=== PATIENT | male | born 2000 | race Caucasian/White ===

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

== ENCOUNTER 2019-08-28 08:00 | Emergency (ER) | payer OTHER ==
[2019-08-28] MEDS ORDERED: diPHENhydraMINE IV* 50 MG/ML 1 ml VIAL (BENADRYL) IV ONE (08:04)
[2019-08-28] MEDS ORDERED: NS 0.9% 1000 ML** 1,000 ML IV ONE (08:04)
[2019-08-28] MEDS ORDERED: Metoclopramide IV* 5 MG/ML 2 ML VIAL IV ONE (08:04)
--- NOTE | 2019-08-28 08:09 | ED ---
Neurological HPI - HPI Summary HPI Summary: This pt is a 19 Y/O M [facility] of a headache that is rated a 2/10 in severity. He states that the headache occurred when he woke this morning and was associated with L sided weakness and tingling, dizziness, issues with ambulation, and issues with speaking. He states that he was last known normal at 1999 last night when he went to sleep. He states that he has a history of hemiplegic headaches and reports around 20 episodes with one that resorted in a trip to the hospital. He states that this currently episode began with a sinus headache. He denies any fevers, chills, SOB, CP, sore throat, and myalgia. He states that he has no aggravating or alleviating factors. He has a PMHx of autism, bipolar disorder, and chronic migraines. - History of Current Complaint Chief Complaint: EDHeadache Stated Complaint: L SIDE WEAKNESS PER EMS Time Seen by Provider: 08/28/19 08:04 Last Known Well Date: 2000 Hx Obtained From: Patient Onset/Duration: Sudden Onset Timing: Constant Pain Intensity: 2 Pain Scale Used: 0-10 Numeric Character: Dizzy, Numbness/Tingling, Motor Weakness, Impaired Speech Aggravating: Nothing Alleviating: Nothing Associated Signs and Symptoms: Positive: Headache, Weakness - L sided distal extremities, Dizziness, Impaired Speech, Numbness - L sided distal extremities. Negative: Fever, Chest Pain, Shortness of Breath TPA Considered: No - arrived 12 hours to [facility] after onset Similar Episode/Dx as: states Hx of hemiplegic headaches - Additional Pertinent History Primary Care Physician: [id number] - Allergy/Home Medications Allergies/Adverse Reactions: Allergies Allergy/AdvReac Type Severity Reaction Status Date / Time musk melons Allergy Mild Itching Uncoded 08/28/19 08:05 Home Medications: Home Medications risperiDONE TAB* [Risperdal*] 1 mg PO BEDTIME 02/19/16 [History Confirmed ] risperiDONE TAB* [Risperdal*] 0.5 mg PO QAM 08/22/16 [History Confirmed 10/14/18 ] Divalproex DR TAB(*) [Depakote DR TAB(*)] 250 mg PO BID #60 tab. 04/02/18 [Rx Confirmed 10/14/18] Ibuprofen TAB* [Motrin TAB* 800 MG] 800 mg PO Q8H #20 tab 08/26/18 [Rx Confirmed 10/14/18] Enalapril TAB* [Vasotec TAB*] 1 tab PO DAILY 10/14/18 [History Confirmed ] Ofloxacin 0.3% (Ear Drop)* [Floxin 0.3% OTIC.MARISSA (Ear Drop)] 5 drop LEFT EAR BID #1 btl 10/14/18 [Rx] PMH/Surg Hx/FS Hx/Imm Hx Previously Healthy: Yes Endocrine/Hematology History: Denies: Hx Diabetes Cardiovascular History: Reports: Hx Hypertension - on meds, Other Cardiovascular Problems/Disorders - heart murmur Denies: Hx Pacemaker/ICD Respiratory History: Denies: Hx Asthma History: Denies: Hx Dialysis, Hx Renal Disease Musculoskeletal History: Reports: Other Musculoskeletal History - hypermobility syndrome Denies: Hx Rheumatoid Arthritis, Hx Osteoporosis Sensory History: Reports: Hx Contacts or Glasses Denies: Hx Hearing Aid Opthamlomology History: Reports: Hx Contacts or Glasses Psychiatric History: Reports: Hx Anxiety, Hx Autism, Hx Depression, Hx Inpatient Treatment, Hx Community Mental Health Tx, Hx Bipolar Disorder, Hx Suicide Attempt, Hx of Violent Episodes Against Others Denies: Hx Eating Disorder, Hx Panic Disorder - Cancer History Hx Chemotherapy: No Hx Radiation Therapy: No - Surgical History Surgical History: Yes Surgery Procedure, Year, and Place: wisdom teeth - Immunization History Date of Tetanus Vaccine: Up to date Date of Influenza Vaccine: None Immunizations Up to Date: Yes Infectious Disease History: Denies: Hx Clostridium Difficile, Hx Hepatitis, Hx Human Immunodeficiency Virus (HIV), Hx of Known/Suspected MRSA, Hx Tuberculosis, Hx Known/Suspected VRE , Hx Known/Suspected VRSA, History Other Infectious Disease - Family History Known Family History: Positive: Other - Bipolar disorder (both parents); TIA ( mother) Negative: Cardiac Disease, Hypertension, Diabetes - Social History Lives: With Family Alcohol Use: None Hx Substance Use: No Substance Use Type: Reports: None Hx Tobacco Use: No Smoking Status (MU): Never Smoked Tobacco Have You Smoked in the Last Year: No Review of Systems Negative: Fever, Chills Negative: Chest Pain Negative: Shortness Of Breath Negative: Myalgia Neurological/Mental Status: Other - impaired speech Positive: Headache, Weakness - L sided distal extremitites, Numbness - L sided distal extremities All Other Systems Reviewed And Are Negative: Yes Physical Exam - Summary Physical Exam Summary: Constitutional: Well-developed, Well-nourished, Alert. (-) Distressed Skin: Warm, Dry HENT: Normocephalic; Atraumatic Eyes: Conjunctiva normal Neck: Musculoskeletal ROM normal neck. (-) JVD, (-) Stridor, (-) Tracheal deviation Cardio: Rhythm regular, rate normal, Heart sounds normal; Intact distal pulses. Radial pulses are 2+ and symmetric. (-) Murmur Pulmonary/Chest wall: Effort normal. (-) Respiratory distress, (-) Wheezes, (-) Rales Abd: Soft. (-) Tenderness, (-) Distension, (-) Guarding, (-) Rebound Musculoskeletal: (-) Edema Lymph: (-) Cervical adenopathy Neuro: Alert, Oriented x3, Strength normal, Cranial nerves II-XII are grossly intact. (-) Dysmetria, (-) Nystagmus, (-) Ataxia by finger to nose testing, Decreased sensation in the palms and feet on the L, moving more proximally improves sensations Psych: Mood and affect Normal NIH: 1 (see attached section for more information) Triage Information Reviewed: Yes Vital Signs On Initial Exam: Temp Pulse Resp BP SpO2 FiO2 97.8 F 70 17 132/81 98 08/28/19 08:02 08/28/19 08:02 08/28/19 08:02 08/28/19 08:02 08/28/19 08:02 Vital Signs Reviewed: Yes - Chuy Coma Scale Best Eye Response: 4 - Spontaneous Best Motor Response: 6 - Obeys Commands Best Verbal Response: 5 - Oriented Coma Scale Total: 15 Procedures - Sedation Patient Received Moderate/Deep Sedation with Procedure: No Diagnostics - Laboratory Result Diagrams: 08/28/19 08:26 08/28/19 08:26 Lab Statement: Any lab studies that have been ordered have been reviewed, and results considered in the medical decision making process. NIH Scale - NIH Scale Level of Consciousness: Alert/Keenly Responsive Ask Patient the Month and His/Her Age: Both Correct Ask Pt to Open/Close Eyes and Waste Collection Driver/Release Non-Paretic Hand: Both Correctly Best Gaze (Only Horizontal Eye Movement): Normal Visual Field Testing: No Visual Loss Facial Paresis-Pt to Smile & Close Eyes or Grimace Symmetry: Normal/Symmetrical Motor Function - Right Arm: No Drift-Holds 10 Seconds Motor Function - Left Arm: No Drift-Holds 10 Seconds Motor Function - Right Leg: No Drift-Holds 10 Seconds Motor Function - Left Leg: No Drift-Holds 10 Seconds Limb Ataxia-Must be out of Proportion to Weakness Present: Absent Sensory (Use Pinprick to Test Arms/Legs/Trunk/Face): Pinprick Less on Affected Best Language (Describe Picture, Name Items): No Aphasia Dysarthria (Read Several Words): Normal Extinction and Inattention: No Abnormality Total Score: 1 Re-Evaluation - Re-Evaluation First Eval Re-Evaluation Time: 08:52 Change: Improved Comment: States that he is feeling better. Reports being drowsy and that his lightheadedness and tinglinging is improving. Second Eval Re-Evaluation Time: 09:45 Change: Improved Comment: Pt states that his headache is almost completely gone and his strength has returned to normal. He states that he is now sleepy. Course/Dx - Course Course Of Treatment: Patient is here with his typical hemiplegic migraine. The patient was last seen normal at 8 PM yesterday so he is out of any stroke window. Upon arrival, patient had a normal neurologic exam outside of peripheral numbness in his fingers and foot. Patient had bloodwork performed which is grossly unremarkable. Patient was given a migraine cocktail with vast improvement in his symptoms. Patient is discharged with neurology follow-up - Diagnoses Provider Diagnoses: Headache, hemiplegic migraine Discharge ED - Sign-Out/Discharge Documenting (check all that apply): Patient Departure - discharge - Discharge Plan Condition: Good Disposition: HOME Patient Education Materials: Migraine Headache (ED) Referrals: Lia Hodges MD [Primary Care Provider] - 2 Days Antelmo Nielsen MD [Medical Doctor] - 2 Days Additional Instructions: PLEASE FOLLOW UP WITH YOUR PRIMARY CARE PROVIDER AND DR. NIELSEN, NEUROLOGY, IN THE NEXT 1-3 DAYS AND RETURN TO THE EMERGENCY DEPARTMENT FOR ANY NEW OR WORSENING SYMPTOMS. Take advil for the pain. If you develop any new symptoms, or have re-occurring symptoms, please return to the emergency department for further work-ups. - Billing Disposition and Condition Condition: GOOD Disposition: Home - Attestation Statements Document Initiated by Erica: Yes Documenting Scribe: Jose Flowers Provider For Whom Scribe is Documenting (Include Credential): Gibson Hernandez MD Scribe Attestation: I, Jose Flowers, scribed for Gibson Hernandez MD on 08/28/19 at 1317. Scribe Documentation Reviewed: Yes Provider Attestation: The documentation as recorded by the [email or web address] accurately reflects the service I personally performed and the decisions made by me, Gibson Hernandez MD Status of Scribe Document: Viewed
--- OUTSIDE RECORDS SUMMARY | 2019-08-28 08:36 | XMS REPORT ---
:2000 Author Organization [facility] Care Team Providers Name Role Phone JOSUE MAHAN Primary Care Physician Unavailable Allergies, Adverse Reactions, Alerts Allergy Code CodeSystem Reaction Severity Criticality Status Start Substance Date Moderate Medications Medication Medication Medication Start Stop Route Dose Status Fill Code CodeSystem Date Date Instructions risperidone 919945 RxNorm 2020- oral 1 mg 1/2 active Take 1/2 6 06-11 tablet tablet by three mouth three times a times a day day for 30 day(s) Depakote 1993692 RxNorm 2019- oral 250 mg 1 completed Take 1 tablet 07-31 tablet,d by mouth elayed twice a day release for 30 day(s) (DR/EC) twice a day divalproex 1241200 RxNorm 2019- oral 250 mg 1 active 1 tablet 8-02 03-01 tablet,d twice a day elayed for 30 day(s) release (DR/EC) twice a day Problems Problem Name Code CodeSystem Alternate Alternate Start End Status Narrative Code CodeSystem Date Date Bipolar 79237498 SNOMED-CT Active affective 4-06 disorder, unspecified Childhood [id number] SNOMED-CT Active autism 3-22 Relevant diagnostic tests/laboratory data Narrative No Information Procedures Procedure Code CodeSystem Target Date of Status Service Device Device Device Name Site Procedure Delivery Code Name UID Location Psychotherap [id number] SNOMED-CT () 2018-08-24 complete Mental y, 44 04 d Health- minutes with [facility] patient [address], [id number] [phone] Psychotherap [id number] SNOMED-CT () 2018-09-21 complete Mental y, 44 04 d Health- minutes with [facility] patient [address], [id number] [phone] Office [place] [id number] SNOMED-CT () 2018-09-30 complete Mental other 7 d Health- outpatient [facility] visit for [address], established [id number] patient, [phone] which requires at least 2 of these 3 moise components: An expanded problem focused history; An expanded problem focused examination; Medical decision making of low Psychotherap [id number] SNOMED-CT () 2018-10-27 complete Mental y, 44 04 d Health- minutes with [facility] patient [address], [id number] [phone] SNOMED-CT () 2018-11-02 complete Mental d Health- [facility], [id number] [id number] Office or [id number] SNOMED-CT () 2018-11-11 complete Mental other 7 d Health- outpatient [facility] visit for [address], established [id number] patient, [id number] which requires at least 2 of these 3 moise components: An expanded problem focused history; An expanded problem focused examination; Medical decision making of low SNOMED-CT () 2018-11-23 complete Mental d Health- [address], [id number] [phone] Psychotherap [id number] SNOMED-CT () 2018-11-17 complete Mental y, 44 04 d Health- minutes with [facility] patient [address], [id number] [phone] Psychotherap [id number] SNOMED-CT () 2018-12-14 complete Mental y, 45 04 d Health- minutes with [facility] patient [address], [id number] [phone] Office or [id number] SNOMED-CT () 2019-01-05 complete Mental other 6 d Health- outpatient [facility] visit for [address], established [id number] patient, [phone] which requires at least 2 of these 3 moise components: A problem focused history; A problem focused examination; Straightforw wilfredo medical decision making. Tomin SNOMED-CT () 2019-02-01 complete Mental d Health- [address], [id number] [phone] Psychotherap [id number] SNOMED-CT () 2019-02-09 complete Mental y, 45 04 d Health- minutes with [facility] patient [address], [id number] [phone] Psychotherap [id number] SNOMED-CT () 2019-02-15 complete Mental y, 45 04 d Health- minutes with [facility] patient [address], [id number] [phone] Office or [id number] SNOMED-CT () 2019-02-23 complete Mental other 6 d Health- outpatient [facility] visit for [address], [facility], established [id number] patient, [phone] which requires at least 2 of these 3 moise components: A problem focused history; A problem focused examination; Straightforw wilfredo medical decision making. Counselin Psychotherap [id number] SNOMED-CT () 2019-03-16 complete Mental y, 44 04 d Health- minutes with [facility] patient [address], [id number] [phone] Office or [id number] SNOMED-CT () 2019-04-20 complete Mental other 6 d Health- outpatient [facility] visit for [address], [facility], established [id number] patient, [phone] which requires at least 2 of these 3 moise components: A problem focused history; A problem focused examination; Straightforw wilfredo medical decision making. Counselin SNOMED-CT () 2019-04-27 complete Mental d Health- [facility] [address], [id number] [phone] SNOMED-CT () 2019-05-25 complete Mental d Health- [facility] [address], [id number] [phone] Psychotherap [id number] SNOMED-CT () 2019-07-08 complete Mental y, 45 04 d Health- minutes with [facility] patient [address], [id number] [phone] Office or [id number] SNOMED-CT () 2019-07-07 complete Mental other 6 d Health- outpatient [facility] visit for [address], management [place], of an [facility] established [phone] patient, [phone] which requires at least 2 of these 3 moise components: A problem focused history; A problem focused examination; Straightforw wilfredo medical decision making. Counselin Encounters/Encounter Diagnoses Encounter Encounter Diagnosis Diagnosis Name Diagnosis Date of Service Name Code Code CodeSystem Diagnosis Delivery Location Non-Billable 10316 [id number] Bipolar SNOMED-CT 2019-07-19 Behavioral affective Health disorder, Clinic , , unspecified , Vital Signs No Information Social History Element Description Description Start End Code CodeSystem AdditionalInfo Date Date SexAssignedAtBirth Male 1999-05 M AdministrativeGender 16 Hospital Discharge Instructions Reason For Referral Medical Equipment FDA Assessments
[2019-08-28 08:39] LABS: ABS Eosinophils 0.1 10^3/ul (0-0.6); ABS Lymphocytes 1.3 10^3/ul (1.0-4.8); ABS Monocytes 0.4 10^3/ul (0-0.8); ABS Neutrophils 3.8 10^3/ul (1.5-7.7); Eosinophil % 1.9 %; Hematocrit 47 % (42-52); Hemoglobin 16.4 g/dL (14.0-18.0); Lymphocyte % 23.3 %; Mean Corpuscular HGB Conc 35 g/dL (31-36); Mean Corpuscular Hemoglobin 31 pg (27-31); Mean Corpuscular Volume 90 fL (80-94); Mean Platelet Volume 8.6 fL (7.4-10.4); Nucleated Red Blood Cells % 0.1; Platelet Count 183 10^3/uL (150-450); Red Blood Count 5.23 10^6 /uL (4.18-5.48); Red Cell Distribution Width 12 % (10-15); White Blood Count 5.7 10^3/uL (3.5-10.8)
[2019-08-28 08:48] LABS: Albumin 4.4 g/dL (3.2-5.2); Albumin/Globulin Ratio 1.9 (1-3); BUN/Creatinine Ratio 15.2 (8-20); Calcium 9.5 mg/dL (8.6-10.3); EGFR African American 126.9 (>60); EGFR Non-African American 104.9 (>60); Globulin 2.3 g/dL (2-4); Potassium 4.4 mmol/L (3.5-5.0); Total Bilirubin 0.4 mg/dL (0.2-1.0); Total Protein 6.7 g/dL (6.4-8.9)
[2019-08-28] MEDS ORDERED: Ketorolac INJ* 30 MG/ML 1 ML VIAL IV ONE (08:52)
[2019-08-28 09:51] VITALS: BP 124/67
== END 2019-08-28 09:51 | disposition home or self-care (01) ==
LOC: ED 08:00
DX: G43.409 Hemiplegic migraine, not intractable, without status migrainosus (principal); R20.0 Anesthesia of skin; I10 Essential (primary) hypertension; Z79.899 Other long term (current) drug therapy; F41.9 Anxiety disorder, unspecified
CPT/HCPCS: 36415; 80053; 83735; 85025; 96374; 96375; 99282; J1200; J1885; J2765

== ENCOUNTER 2021-03-21 18:19 | Inpatient (IN) ==
[2021-03-21 19:10] LABS: ABS Eosinophils 0.1 10^3/ul (0-0.6); ABS Monocytes 0.6 10^3/ul (0-0.8); ABS Neutrophils 5.1 10^3/ul (1.5-7.7); Eosinophil % 1.5 %; Hematocrit 48 % (42-52); Hemoglobin 16.3 g/dL (14.0-18.0); Lymphocyte % 25.9 %; Mean Corpuscular HGB Conc 34 g/dL (31-36); Mean Corpuscular Hemoglobin 31 pg (27-31); Mean Corpuscular Volume 90 fL (80-94); Mean Platelet Volume 8.5 fL (7.4-10.4); Platelet Count 190 10^3/uL (150-450); Red Cell Distribution Width 12 % (10-15); White Blood Count 7.8 10^3/uL (3.5-10.8)
[2021-03-21 19:24] LABS: ALT 43 U/L (7-52); AST 23 U/L (13-39); Albumin 4.8 g/dL (3.2-5.2); Albumin/Globulin Ratio 1.8 (1-3); Alkaline Phosphatase 52 U/L (35-149); Anion Gap 9 mmol/L (2-11); Blood Urea Nitrogen 14 mg/dL (6-24); CO2 Carbon Dioxide 28 mmol/L (22-32); Calcium 9.9 mg/dL (8.6-10.3); Chloride 98 mmol/L (101-111); Globulin 2.6 g/dL (2-4); Glucose 91 mg/dL (70-100); Potassium 3.8 mmol/L (3.5-5.0); Sodium 135 mmol/L (135-145); Total Protein 7.4 g/dL (6.4-8.9)
[2021-03-21 19:53] LABS: Acetaminophen < 15 mcg/mL; Alcohol, S < 13 mg/dL (<13); Salicylate < 2.50 mg/dL (<30)
[2021-03-21 20:02] LABS: TSH Ultra Thyroid Stim Horm 3.75 mcIU/mL (0.34-5.60)
[2021-03-21 20:19] LABS: Urine Appearance Clear; Urine Bilirubin Negative (Negative); Urine Blood Negative (Negative); Urine Color Straw; Urine Glucose Negative (Negative); Urine Ketones Negative (Negative); Urine Nitrite Negative (Negative); Urine Protein Negative (Negative); Urine Specific Gravity 1.009 (1.002-1.030); Urine Urobilinogen Negative (Negative)
[2021-03-21 20:38] LABS: Urine Benzodiazepine Screen None Detected (None Detect); Urine Cannabinoids Screen None Detected (None Detect); Urine Opiates Screen None Detected (None Detect)
[2021-03-22 05:19] LABS: Rapid COVID-19 Molecular Undetected (Undetected)
[2021-03-22] MEDS ORDERED: Al Hydrox/Mg Hydrox/Simet LIQ 30 ML UDC PO PRN (07:03)
[2021-03-22] MEDS: CMCS: OMEGA-3 FATTY ACID 1000 mg(NF) PO SCH ×3 (07:38→20:26)
[2021-03-22] MEDS: Vitamin THERAPEUTIC TAB PO SCH (07:45)
[2021-03-23 08:01] LABS: HDL Cholesterol 23.8 mg/dL
[2021-03-23] MEDS: Vitamin THERAPEUTIC TAB PO SCH (08:11)
[2021-03-23] MEDS: CMCS: OMEGA-3 FATTY ACID 1000 mg(NF) PO SCH (20:11)
[2021-03-24] MEDS: Vitamin THERAPEUTIC TAB PO SCH (07:56)
[2021-03-24] MEDS: CMCS: OMEGA-3 FATTY ACID 1000 mg(NF) PO SCH (20:10)
[2021-03-25] MEDS: Vitamin THERAPEUTIC TAB PO SCH (08:23)
[2021-03-25] MEDS: CMCS: OMEGA-3 FATTY ACID 1000 mg(NF) PO SCH (20:02)
[2021-03-26] MEDS: Vitamin THERAPEUTIC TAB PO SCH (09:47)
[2021-03-26] MEDS: CMCS: OMEGA-3 FATTY ACID 1000 mg(NF) PO SCH (20:04)
[2021-03-27] MEDS: Vitamin THERAPEUTIC TAB PO SCH (08:24)
[2021-03-27 08:25] VITALS: BP 133/76
== END 2021-03-27 13:30 | disposition home or self-care (01) | DRG 753 ==
LOC: ED 18:19 → BSU 03-22 04:40
PROVIDERS: ADMIT Psychiatry & Neurology Psychiatry; ATTEND Psychiatry & Neurology Psychiatry

== ENCOUNTER 2022-01-11 18:25 | Inpatient (IN) ==
[2022-01-11 20:30] LABS: ABS Eosinophils 0.4 10^3/ul (0-0.6); ABS Lymphocytes 1.8 10^3/ul (1.0-4.8); ABS Monocytes 0.6 10^3/ul (0-0.8); ABS Neutrophils 2.2 10^3/ul (1.5-7.7); Eosinophil % 7.5 %; Hematocrit 47 % (42-52); Lymphocyte % 36.8 %; Mean Corpuscular HGB Conc 34 g/dL (31-36); Mean Corpuscular Hemoglobin 31 pg (27-31); Mean Corpuscular Volume 91 fL (80-94); Mean Platelet Volume 8.3 fL (7.4-10.4); Nucleated Red Blood Cells % 0.1; Platelet Count 180 10^3/uL (150-450); Red Blood Count 5.19 10^6 /uL (4.18-5.48); Red Cell Distribution Width 12 % (10-15); White Blood Count 4.9 10^3/uL (3.5-10.8)
[2022-01-11 21:25] LABS: ALT 40 U/L (7-52); AST 23 U/L (13-39); Acetaminophen < 15 mcg/mL; Albumin 4.8 g/dL (3.2-5.2); Albumin/Globulin Ratio 2.1 (1-3); Alcohol, S < 13 mg/dL (<13); Alkaline Phosphatase 50 U/L (35-149); Anion Gap 10 mmol/L (2-11); Blood Urea Nitrogen 17 mg/dL (6-24); CO2 Carbon Dioxide 30 mmol/L (22-32); Calcium 9.8 mg/dL (8.6-10.3); Chloride 99 mmol/L (101-111); Globulin 2.3 g/dL (2-4); Glucose 88 mg/dL (70-100); Potassium 4.8 mmol/L (3.5-5.0); Sodium 139 mmol/L (135-145); Total Protein 7.1 g/dL (6.4-8.9); eGFR CKD-EPI 128.3 (>60)
[2022-01-11 21:26] LABS: Salicylate < 2.50 mg/dL (<30)
[2022-01-11 21:42] LABS: TSH Ultra Thyroid Stim Horm 2.65 mcIU/mL (0.34-5.60)
[2022-01-11 22:31] LABS: Urine Benzodiazepine Screen None Detected (None Detect); Urine Cannabinoids Screen None Detected (None Detect); Urine Opiates Screen None Detected (None Detect)
[2022-01-12] MEDS ORDERED: Al Hydrox/Mg Hydrox/Simet LIQ 30 ML UDC PO PRN (04:33)
[2022-01-12] MEDS: Vitamin THERAPEUTIC TAB PO SCH (10:43)
[2022-01-12] MEDS: Cholecalciferol (VIT D3) 1,000 unit TAB PO SCH (12:45)
[2022-01-12] MEDS ORDERED: CMC:OMEGA-3 FATTY ACID 1000 mg(NF) PO SCH (13:00)
[2022-01-12] MEDS: CMC:OMEGA-3 FATTY ACID 1000 mg(NF) PO SCH (20:13)
[2022-01-13] MEDS: Cholecalciferol (VIT D3) 1,000 unit TAB PO SCH (07:31)
[2022-01-13] MEDS: Vitamin THERAPEUTIC TAB PO SCH (07:31)
[2022-01-13 08:18] LABS: HDL Cholesterol 23.1 mg/dL
[2022-01-13] MEDS: CMC:OMEGA-3 FATTY ACID 1000 mg(NF) PO SCH (20:45)
[2022-01-14] MEDS: Vitamin THERAPEUTIC TAB PO SCH (07:30)
[2022-01-14] MEDS: Cholecalciferol (VIT D3) 1,000 unit TAB PO SCH (07:30)
[2022-01-14] MEDS: CMC:OMEGA-3 FATTY ACID 1000 mg(NF) PO SCH (21:21)
[2022-01-15] MEDS: Cholecalciferol (VIT D3) 1,000 unit TAB PO SCH (08:08)
[2022-01-15] MEDS: Vitamin THERAPEUTIC TAB PO SCH (08:08)
[2022-01-15 08:29] VITALS: BP 144/64
== END 2022-01-15 13:25 | disposition home or self-care (01) | DRG 754 ==
LOC: ED 18:25 → EDHOLD 01-12 03:48 → BSU 01-12 04:30
PROVIDERS: ADMIT Psychiatry & Neurology Addiction Psychiatry; ATTEND Psychiatry & Neurology Addiction Psychiatry